=== PATIENT | female | born 1960 | race Caucasian/White ===

== ENCOUNTER → 2018-11-15 17:39 | Outpatient (CLI) | payer MEDICARE, MEDICAID, SELFPAY ==
--- NOTE | 2018-11-15 | DI.MRI.S_ITS ---
PROCEDURE: MR CERVICAL SPINE WO CON INDICATIONS: PAIN IN SHOULDER AND NECK TECHNIQUE: Noncontrast sagittal T1 spin echo and T2 fast spin echo, sagittal STIR, foraminal oblique sagittal T2 fast spin echo, and axial gradient echo or T2 fast spin echo through the cervical spine. COMPARISON: None. FINDINGS: Image quality: This examination is limited by involuntary motion artifact. Alignment and Curvature: There is reversal of the normal cervical lordosis, with the apex at the C5-C6 level. Bone Marrow: Marrow demonstrates normal overall signal. Spinal Cord: Visualized spinal cord has normal size and signal. No cerebellar tonsillar herniation. Paraspinous Soft Tissues: No paravertebral masses. Prevertebral soft tissues are normal in thickness. C2-C3: Mild loss of disc height is seen. Loss of disc signal is seen. Lbtm-[id number] facet hypertrophy is seen. There is mild to moderate bilateral neural foraminal narrowing seen. Minimal central canal narrowing is seen. C3-C4: The disc height is well-preserved. Loss of disc signal is seen at this level. Moderate disc osteophyte complex is seen, which is eccentric to the right. There is moderate facet hypertrophy seen, right worse than left. There is moderate to severe right-sided and moderate left-sided neural foraminal narrowing seen. At least moderate central canal narrowing is seen, with mass effect upon the ventral spinal cord. C4-C5: The disc height is well-preserved. Loss of disc signal is seen at this level. Moderate disc osteophyte complex is seen, which is eccentric to the left. There is mild to moderate right-sided and moderate left-sided facet hypertrophy seen. There is moderate right-sided and moderate to severe left-sided neural foraminal narrowing seen. Moderate central canal narrowing is seen, with mass effect upon the ventral spinal cord. C5-C6: Moderate loss of disc height is seen. Loss of disc signal is seen. Moderate to prominent disc osteophyte complex is seen. Uncovertebral joint hypertrophy is seen at this level. Mild facet joint hypertrophy is seen. Moderate to severe bilateral neural foraminal narrowing is seen. Moderate to severe central canal narrowing is seen, with mass effect upon the ventral spinal cord, as on series 5 image 24. C6-C7: Anterior fusion changes are seen at this level. There is associated susceptibility artifact. There is vertebral body fusion at this level. There is at least moderate bilateral neural foraminal narrowing seen. There is mild to moderate central canal narrowing. C7-T1: Mild to moderate loss of disc height and disc signal are seen. Moderate generalized disc osteophyte complex is seen. Moderate bilateral neural foraminal narrowing is seen. No significant central canal narrowing is seen. IMPRESSION: C6-C7 postoperative fusion changes anteriorly. Multiple levels of degenerative change are seen, which are worst at the C5-C6 level, where there is moderate to severe bilateral neural foraminal narrowing and moderate to severe central canal narrowing. Dictated by: Alex Vogt M.D. on 11/16/2018 at 8:19 Approved by: Alex Vogt M.D. on 11/16/2018 at 8:25
== END ==
PROVIDERS: Visit Provider Physical Medicine & Rehabilitation
DX: M25.512 Pain in left shoulder (principal); M54.2 Cervicalgia; M47.22 Other spondylosis with radiculopathy, cervical region; M48.02 Spinal stenosis, cervical region; Z98.1 Arthrodesis status
CPT/HCPCS: 72141

== ENCOUNTER → 2019-02-20 12:20 | Outpatient (CLI) | payer MEDICARE, MEDICAID, SELFPAY ==
[2019-02-20 13:19] LABS: Add Manual Diff / Slide Review NO; Basophils Absolute Auto 0 /uL (0-100); Basophils Percent Auto 0.5 % (0-2); Eosinophils Absolute Auto 300 /uL (0-450); Eosinophils Percent Auto 5.3 % (2-4); Hematocrit 40.2 % (36-46); Hemoglobin 13.4 g/dL (12.0-16.0); Lymphocytes Absolute Auto 1900 /uL (1100-4500); Lymphocytes Percent Auto 28.5 % (25-40); Mean Corpuscular HGB Conc 33.2 % (30-36); Mean Corpuscular Volume 96.2 fL (80-100); Monocytes Absolute Auto 500 /uL (0-900); Monocytes Percent Auto 7.9 % (3-14); Neutrophils Absolute Auto 3800 /uL (1500-7000); Neutrophils Percent Auto 57.8 % (50-75); Platelet Count 308 X10^3/uL (150-400); Red Blood Cell Count 4.18 X10^6/uL (4.0-5.2); Red Cell Distribution Width 13.7 % (11.6-14.8); White Blood Cell Count 6.5 X10^3/uL (4.5-11.0)
[2019-02-20 13:30] LABS: BUN Creatinine Ratio 28.3 (6-22); Blood Urea Nitrogen 17 mg/dL (7-17); Carbon Dioxide 27 mmol/L (22-32); Chloride 104 mmol/L (98-107); Estimated Glomerular Filt Rate > 60.0 mL/min (>60); Glucose 112 mg/dL (70-100); HEMOLYSIS < 15 (0-50); Potassium 4.7 mmol/L (3.4-5.1); Sodium 141 mmol/L (137-145)
== END ==
PROVIDERS: Visit Provider Physician Assistant
DX: M48.02 Spinal stenosis, cervical region (principal); M47.22 Other spondylosis with radiculopathy, cervical region; Z01.812 Encounter for preprocedural laboratory examination
CPT/HCPCS: 36415; 80048; 85025; 93005; 93010

== ENCOUNTER 2019-03-01 11:14 | Inpatient (IN) | payer MEDICARE, MEDICAID, SELFPAY ==
[2019-02-06 13:25] VITALS: BMI 32.8
[2019-03-01] VITALS (18 sets, daily range): BP systolic 126–178; BP diastolic 70–110; PULSE 79–100; RESP 9–18; TEMP 35.6–36.8; O2SAT 85–100; BMI 32.8
--- NOTE | 2019-03-01 | DI.RAD.S_ITS ---
PROCEDURE: XR CERVICAL SPINE 2V OR 3V INDICATIONS: C4-5, C5-6 ACDF W/ ANTERIOR INSTRU, C6-7 ANTERIOR INSTRUMENT TECHNIQUE: 2 view(s) of the cervical spine were acquired. COMPARISON: [facility] WANDA Black, XR CERVICAL SPINE WITH OBLIQUES, 11/01/2018, 13:49. FINDINGS: Intraoperative fluoroscopic images demonstrate anterior fusion from C4-C6. There is good anatomic alignment hardware appears to be intact.. IMPRESSION: Intraoperative anterior fusion from C4-C6. Recommend correlation with real-time operative report. Dictated by: Trisha Mckenzie M.D. on 03/01/2019 at 17:08 Approved by: Trisha Mckenzie M.D. on 03/01/2019 at 17:08
--- NOTE | 2019-03-01 12:04 | PM.PREOP ---
Pre-operative Note Interval Note History & Physical reviewed/Exam performed by Physician: Yes Changes to H&P: No
[2019-03-01] MEDS: LACTATED RINGERS 1,000 ML 42 ML IV ×2 (12:09→14:46)
[2019-03-01] MEDS: GABAPENTIN 300 MG CAPSULE PO (12:18)
--- NOTE | 2019-03-01 12:27 | SUR.PREOP ---
Anesthesia notified that pt. took own tylenol this a.m. @ 0830; held 975 mg dose.
[2019-03-01] MEDS: CLINDAMYCIN 900 MG/50 ML PIGGYBACK 50 MG IV ×2 (12:33→20:21)
--- NOTE | 2019-03-01 13:18 | SUR.OPER ---
Supine on padded OR bed, head on gel donut, towel roll between shoulders vertically, arms papoosed with gel pads and secured with towel clips on a draw sheet. Taped by surgeon from bilateral shoulders to foot of bed. Legs uncrossed, safety belt at thigh, tape over blanket over lower legs.
[2019-03-01] MEDS: BUPIVACAINE 0.25% W/ EPI 30 ML VIAL INJ (13:29)
[2019-03-01] MEDS: HYDROMORPHONE 2 MG INJ 0.5 MG IV (15:50)
[2019-03-01] MEDS: LORazepam 2 MG/ML INJ 0.25 MG IV (15:51)
[2019-03-01] MEDS: hydrOXYzine 50 MG/ML INJ 25 MG IM (15:54)
--- NOTE | 2019-03-01 15:54 | PM.OP.1 ---
Operative Date/Time/Diagnoses Date of procedure: 03/01/19 Time of procedure: 13:10 Pre-op diagnosis: 1. Hx of C6-7 anterior cervical discectomy and fusion 2. C4-5, C5-6 spinal stenosis 3. C4-5, C5-6 spondylosis with radiculopathy Post-op diagnosis: same Procedure & Clinicians Procedure: 1. C4-5, C5-6 anterior cervical diskectomy and fusion 2. C4-5, C5-6 anterior interbody cage placement 3. C4-5, C5-6 anterior instrumentation with plate and screw placement in C4, C5-C6 vertebrae 4. C6-7 anterior instrumentation removal 5. Utilization of microsurgical technique and operating microscope Same procedure as scheduled: Yes Indications: Patient has been having chronic neck pain and worsening cervical radiculopathy. Patient failed multiple conservative management with worsening pain weakness and numbness in her upper extremity. The patient had prior C6-7 anterior cervical diskectomy and fusion with approximately 6 months of good pain relief. Patient has been having difficulty performing activity of daily living. After discussing risks benefits of treatment options, patient elected proceed with surgery. Surgeon: Colton Friedman Rougher For Cement: Beverly Almanza Click Yes if Unassisted: No Anesthesia Type: General Operative Notes Closure Type: primary Specimen(s): none sent Prosthetic devices, grafts, tissues, transplants, or devices: Globus Extend plate, PEEK cages Applied: catheter Estimated Blood Loss (mL): 20 Blood products transfused: none Procedure in detail: Patient was seen in the preoperative area. Risks and benefits of the surgery was discussed with the patient. Operative consent was obtained and placed in the chart. Patient was then taken to the operative room. Prophylactic antibiotic was given less than 0.5 hr prior to skin incision. General anesthesia was administered. Patient was placed into a supine position on her radiolucent table. Bilateral shoulders were taped down to allow proper C-arm imaging. Anterior cervical area was prepped and draped in a sterile fashion. Time-out was performed at this time. Using lateral C-arm imaging, the level between C4 and C6 was identified and marked on patient's neck. A oblique incision from midline towards medial border of sternocleidomastoid muscle was made. The platysma muscle was incised in line with skin incision. Metzenbaum scissor was used to develop the plane between the medial border of sternocleidomastoid d and the strap muscles medially. The carotid sheath and its contents were identified and protected behind the hand-held retractor during the entire case. The plane between the carotid sheath and strap muscles was developed with Metzenbaum scissors. Dissection was made down to the level of the anterior cervical fascia. Longus colli muscle was incised on the anterior aspect of vertebral bodies bilaterally from C4-7. Spinal needle was placed into the C5-6 disc space and confirmed with lateral C-arm imaging. The C6-7 anterior plate was exposed by dissecting down the soft tissue as well as the anterior osteophyte. Hardware removal instrument was used to remove the locking mechanism on the plate at both C6 and C7 level. Screwdriver was used to remove the C6-7 screws. The screws was removed without any difficulty. After the screws were removed the plate was lifted off of the anterior aspects of the vertebral bodies without any difficulty. Using microsurgical technique and operative microscope, anterior cervical diskectomy was performed at C4-5 C5-6 level. This was done by removing the disc material, removing the anterior and posterior osteophytes posterior longitudinal ligaments along with performing bilateral foraminotomies at both levels. Patient was found to have severe central and foraminal stenosis at both levels. Patient's stenosis was fully decompressed after decompression was completed. After the diskectomy was completed, 2 anterior interbody cages were obtained. The cages were packed with globus via cell bone grafting material. One cage each along with the bone grafting material was then packed into the interbody spaces from C4-6 with one cage into each interbody level. After the cages were placed, the anterior cervical plate was stabilized to the C4-C6 vertebrae using 2 screws at each each level. There were large anterior osteophytes from C3 all the way down to the C6 which were excised using the Leksell rongeur. Total 6 screws were placed. After confirming placement of the hardware with AP and lateral C-arm imaging, the screws were locked into the plate using the locking mechanism and torque limiting screwdriver. After the hardware was placed and confirmed with AP and lateral C-arm imaging, the wound was irrigated with sterile normal saline. The platysma muscle and the subcutaneous tissue was closed with 2-0 Vicryl. The skin was closed with 4-0 Monocryl and Steri-Strips. Patient tolerated the procedure well. Patient was transferred recovery room in stable condition. There were no complications. Complications: none Condition: stable Disposition: PACU Plan for aftercare: Admit to inpatient hospital
--- NOTE | 2019-03-01 16:20 | SUR.PHASEI ---
Pt arrived restless. C/o 02/16 upper back/shoulder pain and feeling hot. Mildly diaphoretic. Ice pack applied. cool rag applied. Medicated.
--- NOTE | 2019-03-01 16:28 | SUR.PHASEI ---
pt mostly sleeping/snoring. Stated what pain? when asked about her pain level. Easily aroused.
--- NOTE | 2019-03-01 16:53 | SUR.PHASEI ---
report called to [facility]
--- NOTE | 2019-03-01 16:57 | SUR.PHASEI ---
Dr. Rose notified pt intermittently needing 1-2L o2 while sleeping and bp 160/92. OK to transfer patient with continuous pulse ox.
--- NOTE | 2019-03-01 17:26 | SUR.PHASEI ---
Pt transferred to the floor with o2 and pulse ox. Report to [facility]. VS stable. IV saline locked. Neck drsg cdi, collar in place. Belongings bag with patient.
[2019-03-01] MEDS: SODIUM CHLORIDE 0.9% 1,000 ML 100 ML IV (18:17)
[2019-03-01] MEDS: DOCUSATE 100 MG CAPSULE PO (20:21)
[2019-03-01] MEDS: OXYCODONE IR 5 MG TABLET 10 MG PO (20:21)
[2019-03-01] MEDS: SENNOSIDES 8.6 MG TABLET 17.2 MG PO (20:22)
[2019-03-02 00:27] VITALS: BP 146/76; PULSE 88; RESP 15; TEMP 36.6; O2SAT 96
[2019-03-02] MEDS: HYDROMORPHONE 0.5 MG INJ IV ×5 (00:32→23:56)
[2019-03-02] MEDS: OXYCODONE IR 5 MG TABLET 10 MG PO ×3 (04:06→15:31)
[2019-03-02] MEDS: CLINDAMYCIN 900 MG/50 ML PIGGYBACK 50 MG IV (04:06)
[2019-03-02] MEDS: ONDANSETRON 4 MG/2 ML INJ IV ×2 (04:24→15:41)
[2019-03-02 05:17] VITALS: BP 131/83; PULSE 85; RESP 16; TEMP 36.8; O2SAT 98
[2019-03-02 08:05] VITALS: BP 154/72; PULSE 85; RESP 20; TEMP 36.4; O2SAT 99
[2019-03-02] MEDS: DOCUSATE 100 MG CAPSULE PO ×2 (08:26→20:19)
[2019-03-02] MEDS: SODIUM CHLORIDE 0.9% FLUSH 10 ML IV ×2 (08:27→20:40)
--- NOTE | 2019-03-02 09:28 | PT.IIE ---
Current Diagnoses Other spondylosis with radiculopathy, cervical region (03/01/19) Spinal stenosis, cervical region (03/01/19) Arthrodesis status (03/01/19) Surgery Performed Operation Date: 03/01/19 13:15 Actual Procedures p C4-5,C5-6 ACDF w/anterior instru, C6-7 anterior instrumentation removal - Colton Friedman MD Surgical History (This Medical Record has been edited. Action required.) History of ankle surgery (Acute) History of section (Acute) History of ear surgery (Acute) Hx of bilateral breast reduction surgery (Acute) Hx of left breast biopsy (Acute) S/P cervical spinal fusion (Acute ~2001) Medical History (This Medical Record has been edited. Action required.) Arthritis (Acute) Dyspnea (Acute) Nerve pain (Acute) Physical Therapy Inpatient Evaluation/Re-Eval M1 PT/OT-IP Prior Functional Status Start: 03/02/19 12:14 Freq: NEEDED Status: Active Protocol: Document 03/02/19 09:28 AB (Rec: 03/02/19 12:35 AB [id number]) Medical Review Prior Functional Status Medical History Reviewed Yes Communication able to make needs known Mobility and Gait pt stated that she is independent with all mobilities and ambulation without AD but occasionally uses a SPC due to hip problem Social History Household Members none Living Arrangements Mobile home Number of Floors (Floors) One Floor Number of Stairs To Enter/Railing? 4 steps with L rail ascending Home Environment Standard Height Toilet Tub/Shower Home Equipment Straight Cane Additional Social History Comment pt stated that her son will be off for 2 days and will assist him; stated that her sister from [place] is in town and may assist her but pt does not know how long her sister will be in town M2 PT-IP Current Condition Start: 03/02/19 12:14 Freq: NEEDED Status: Active Protocol: Document 03/02/19 09:28 AB (Rec: 03/02/19 12:35 AB [id number]) Physical Therapy Current Condition Current Condition Evaluation Date 03/02/19 Treatment Diagnosis C4-5 ACDF; difficulty in walking Onset Date 03/01/19 Precautions Cervical Spine Precautions Soft Collar for Comfort No Heavy Lifting Log Roll M3 PT-IP Subjective Start: 03/02/19 12:14 Freq: NEEDED Status: Active Protocol: Document 03/02/19 09:28 AB (Rec: 03/02/19 12:35 AB [id number]) Subjective Physical Therapy Visit Type Type Initial Evaluation Visit Start Time 09:28 Visit Stop Time 10:00 Total Visit Minutes 32 Number of METEOROLOGY FACULTY MEMBER Visits 0 Physical Therapy Visit Comments Patient Comments pt agreeable to do PT but is c /o increase pain Therapy Pain Assessment Pain When Pain Assessed At Rest Pain Present Pain Present Pain Reported Location Neck Intensity 6 Scale Used Numeric (1 - 10) Pain Management Techniques Apply Cold Re-positioning Timing of Activity with Medications M4 PT-IP Mobility and Gait Start: 03/02/19 12:14 Freq: NEEDED Status: Active Protocol: Document 03/02/19 09:28 AB (Rec: 03/02/19 12:35 AB [id number]) PT-Bed Mobility Assessment Rolling Type of Rolling Log Rolling Level of Assist Standby Assistance Supine to Sit Supine to Sit Standby Assistance Sit to Supine Sit to Supine Standby Assistance Scooting Scooting to Edge of Bed Standby Assistance PT-Transfer Assessment Sit to and From Stand Sit to and from Stand Minimal Assistance 1 Person Assistance Equipment Transfer Assistive Device Gait Belt Straight Cane Front Wheeled Walker Transfers Transfer Destination Chair Toilet Transfer Technique pt ambulated to the toilet Transfer Ability Level of Assist Minimal Assistance Moderate Assistance 1 Person Assistance Use of Upper Extremities Comments Mobility Comments pt completed supine to sit log roll SBA with cues for techniques. pt was able to sit on EOB SBA. completed sit to stand min A and cues. pt requiring mod A for steadiness and safety with standing. pt ambulated to the toilet using SPC requiring mod A and presents with unsteady gait. pt was able to completed sit to stand from the toilet using grab bars min A and cues and ambulated out of the toilet to the chair using FWW min A and cues. attempted to stay up on chair and positioned pt but pt stated that its too much pain on her neck to hold her head upright and wants to go back to bed. completed stand pivot transfer to the bed min A using FWW. completed sit to supine SBA and cues. call light and table placed within reach. Gait Assessment Gait Gait Assistance Required: Minimum Assistance Moderate Assistance 1 Person Assist Distance (Feet) 10 Able to Maintain Weight Bearing Status Yes During Gait Assistive Devices Assistive Device Gait Belt Straight Cane Front Wheeled Walker Orthotic/Prosthetic Devices or Brace: Yes Gait Deviations General Gait Pattern Antalgic Decreased Stride Length Decreased Feet Clearance Step-to Gait Factors Limiting Gait Function Factors Limiting Gait Function Decreased Activity Tolerance Decreased Sensation Decreased Strength Limited Range of Motion Pain Poor Balance Poor Safety Awareness Comments Gait Comments pt ambulated ~ 10 ft using SPC mod A and cues and also ambulated using FWW ~ 10 ft min A and cues. PT-Balance Assessment Sitting Balance and Reactions Static Sitting Balance Ability Good Dynamic Sitting Balance Ability Good Standing Balance and Reactions Static Standing Balance Ability Fair Dynamic Standing Balance Ability Fair Device Used SPC/FWW M5 PT-IP Objective Assessments Start: 03/02/19 12:14 Freq: NEEDED Status: Active Protocol: Document 03/02/19 09:28 AB (Rec: 03/02/19 12:35 AB [id number]) Orientation Orientation/Cognition Level of Alertness Alert Orientation Name Age Birthday Month Date Year Day of Week Place Situation Language Function Ability No Deficits Noted Safety Awareness Decreased Safety Awareness Memory Description Short Term Impaired Gross Range of Motion Lower Extremity ROM Assessment Within Functional Limits Strength Lower Extremity Strength Assessment Bilaterally Impaired Hip 4-/5 Knee 4-/5 Coordination Assessment Gross Coordination Gross Coordination WNL Sensation Assessment Sensation Gross Sensation Right UE Impaired Sensation Description Numbness Tingling Comments Sensation Comments c/o R hand/ finger numbness, tingling Muscle Tone Muscle Tone WNL Yes M6 PT-IP Treatment Start: 03/02/19 12:14 Freq: NEEDED Status: Active Protocol: Document 03/02/19 09:28 AB (Rec: 03/02/19 12:35 AB [id number]) Physical Therapy Treatment Education Education Provided Precautions Weight Bearing Status Post-Op Packet Safety M7 PT-IP Assessment and Plan Start: 03/02/19 12:14 Freq: NEEDED Status: Active Protocol: Document 03/02/19 09:28 AB (Rec: 03/02/19 12:35 AB [id number]) PT Summary Assessment and Plan Potential Rehabilitation Potential Fair Status of Condition at Evaluation Evolving Summary Impairments Pain ROM Strength Balance Coordination Sensation Tone Cognition Bed Mobility Transfers Gait Activity Tolerance Assessment Summary pt unable to tolerate much activity this morning with c/o increase cervical pain. pt has limited assistance at home and pt's son can only stay with pt for 2 days to assist her. d/c plan depending on progress Goals Bed Mobility Goal Independent Transfer Goal Independent Cane Gait Goal Independent Cane Gait Distance 150 Other Goals up/down 4 step L rail ascending SBA Days to Meet Goals 5 Frequency of Treatment Frequency Of Treatment Twice a Day Treatment Plan Physical Therapy Treatment Plan Bed Mobility Training Transfer Training Gait Training Therapeutic Exercise Balance Retraining Post Op Education Discharge Planning Hot or Cold Pack Neuromuscular Re-ed Coordination Retraining Manual Therapy Other Recommendations and Next Treatment bed mobility, ambulation, soft Focus collar management Recommendations To Nursing Amount of Assist Needed 1 Person Assist Discharge Recommendations PT Discharge Recommendations Home with 24/7 Assist Home Health SNF Rehab Other Discharge Recommendations depending on progress: SNF vs home with 24/7 assist
--- NOTE | 2019-03-02 10:12 | PM.PN.1 ---
Subjective Date Patient Seen: 03/02/19 Time Patient Seen: 10:12 Interval history: Patient is POD# s/p ACDF with Dr. Friedman. Significant pain while trying to work with PT today, did make it to chair. Main complaint is muscle spasms in the shoulder blades. Does have some new numbness in right hand which she states is similar to what she had before her previous ACDF. No chest pain, shortness of breath. Some discomfort with swallowing but tolerating a diet. Exam Vital Signs (past 8 hours): - 03/02/19 05:17 03/02/19 08:05 Temperature 98.2 F 97.6 F Pulse Rate 85 85 Respiratory Rate 16 20 Blood Pressure 131/83 154/72 H Pulse Oximetry 98 99 Oxygen Delivery Method Room Air Oxygen Flow Rate 0 Narrative Exam Narrative: 58 year old female in moderate discomfort. Alert and oriented. Wearing soft collar. Dressing is CDI. SILT in B/L upper extremities. [employer] Supervisor strength is symmetric. Calves soft, compressible. Assessment & Plan Assessment & Plan narrative: Patient had good relief with IV Dilaudid so will start Dilaudid 2mg PO Q3hrs. She has Vistaril ordered for muscle spasm but has not taken it yet. Will start this today, potentially change to Flexeril if this is not helping. Likely discharge tomorrow or later today if better pain control. Quality VTE Deep Vein Thrombosis/Pulmonary Embolism Present on Admission: No
[2019-03-02] MEDS: hydrOXYzine pamoate 25 MG CAPSULE PO ×4 (10:21→23:57)
[2019-03-02] MEDS: HYDROMORPHONE 2 MG TABLET PO ×3 (10:21→20:19)
[2019-03-02] MEDS: ACETAMINOPHEN 325 MG TABLET 650 MG PO ×3 (10:23→23:57)
[2019-03-02 11:20] VITALS: BP 126/74; PULSE 87; RESP 18; TEMP 36.7; O2SAT 95
--- NOTE | 2019-03-02 11:52 | CM.DANOTE ---
DCP/Assessment: Reviewed chart. Patient is a 58yr old female admitted [facility] for ACDF with Dr. Friedman performed on 03-01-19. PCP is Dr. Yang. Primary payor is 1)Medicare 2)Medicaid. Met with patient and family at bedside explained CM/SW role. Patient with complaints of significant pain today. Patient plans to d/c home with family support. Per patient, she hopes to discharge tomorrow? Patient does have cane at home and uses at baseline. Patient believes that she may need FWW. Notified patient that the therapy team would let us know if walker needed prior to d/c. Patient's sister/Jane here visiting from [facility]. Patient reports that she resides with her son/Bora and has additional family support. Notified patient that CM team would continue to follow. P: Home when stable. ISS[facility] Gallo Discharge Planning/Care Management CM Discharge Assessment Start: 03/02/19 11:42 Freq: Status: Active Protocol: Document 03/02/19 11:42 KJS (Rec: 03/02/19 11:52 KJS [id number]) Discharge Planning Assessment Assigned Software Applications Specialist ISSAC Gallo Contact Information Vania Castellanos (Mother) [phone] Advance Directives? No: Declines further information History Provided By Patient Family Member Parents Medical Record Prior Living Arrangements Mobile home Household Members none Type of transporation used prior to Drives own vehicle admit Independent with ADL's Yes Is patient alert and oriented? Yes DME Already Rented / Owned Cane Comment Might need FWW for home use. Barriers to Discharge No Discharge Plan Home Transportation Arrangement Home with supportive family. Whiteboard Updated in Patient Room with Yes name and ext. 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 Required No Height 160.02 cm Weight 83.915 kg Body Mass Index (BMI) 32.8 Hearing Ability Normal Visual Assist Glasses Magnifying Glass Dentition Type Teeth, Natural Present Teeth, Missing Barriers to Learning None Other Aids No Hx Anesthesia Reactions No Hx Family Anesthesia Reaction No Hx Malignant Hyperthermia No Hx Blood Transfusions No Anesthesia Review Requested No alcohol intake current alcohol intake frequency holidays/special occasions only Smoking Status Former smoker Tobacco type cigarettes how long ago did patient quit smoking Quit 12 years ago Substance Use Type does not use Pain Present Pain Reported Musculoskeletal Symptoms Difficulty Walking Limited Range of Motion Muscle Cramps Muscle Spasms Muscle Weakness Neck Pain Numbness Radiating Pain into Limb Tingling History of Falling (Recent or History of Yes ) Patient is completely paralyzed or No completely immobile Prosthesis or Orthotic Device Cane Mental Status Oriented to own ability Is patient on oxygen? No Does patient have TURPIN/SOB Yes: TURPIN w/walking, cold weather, she feels r/t deconditioning Hx Sleep Apnea No Suspected Sleep Apnea Yes: Stop/Bang negative Currently Taking a Beta Noé No Can You Climb a Flight of Stairs Without Yes SOB Hx Chest Pain No Hx SOB Yes: TURPIN w/walking, cold weather, she feels r/t deconditioning Hx Syncope or Dizziness No Anti-Coagulant Therapy No Has a Gold Letterer No Cardiac Testing No Hx Pacemaker/ICD No Pacemaker Rep Required? No Cardiac Clearance Received Not Applicable Diet Type At Home Regular dysphagia Yes: Occasional in the mornings Urinary Catheter Present No Hx Urinary Self Catheterization No Diabetes No Patient No Lactating No Hx Drug Resistant Organism No Presence of External or Internal Medical Yes: Cervical hardware Devices Have you traveled outside the [facility] in the last 30 days? Marital Status Single Lives With none Prior Living Arrangements Mobile home Number of Floors (Floors) One Floor Support System Child/Children Does the Patient Have Assistance After Yes Surgery Patient Discharge Plan Description Return Home Comment Pt advised overnight length of stay per surgeon Feels Safe in Current Environment Yes Been Physically Hurt or Threatened By a No Person in Current Environment Do you have thoughts of harming yourself None or others? Are you currently considering suicide? No Do you have a plan to hurt yourself or No Plan others? Do You Have Any Spiritual Beliefs That No May Affect Your HC Choices? Do You Have Any Cultural Practices That No May Affect Your HC Choices? Comment Hugo Who Can We Speak to About Patient's Care Family, friends Identifying Code for Release of Patient Declines to issue Information Health Care Proxy/Next of Kin Bora (son) Health Care Proxy Emergency Contact Name Bora (son) Emergency Contact Advance Directives? No: Declines further information PAC Instructions Medications to take/avoid Nasal antibiotic No ETOH/petroleum product on skin DOS NPO Post-op transportation Pre-surgical wash Sturdy shoes/comfortable clothes Do not bring valuables and remove jewelry Stop Bang Assessment Do you snore loudly (louder than talking Yes or loud enough to be heard through closed doors) Do you often feel tired, fatigued or Yes sleepy during the daytime Has anyone ever observed you stop No breathing while sleeping? Do you have, or are you being treated No for, high blood pressure Is your BMI more than 35 kg/m2 No Age over 50 Yes Estimated neck circumference greater No than 40cm or 16in Gender male No Result Negative
--- NOTE | 2019-03-02 12:07 | SLP.IPNOTE ---
Swallow screen performed per s/p ACDF surgery. Pt is safely tolerating pureed foods and thin liquids. Pt and family report voice is baseline. Anticipate pt will be able to advance diet slowly as is typical after ACDF surgery. No skilled assessment or intervention warranted at this time.
--- NOTE | 2019-03-02 14:05 | PT.IPTN ---
Current Diagnoses Other spondylosis with radiculopathy, cervical region (03/01/19) Spinal stenosis, cervical region (03/01/19) Arthrodesis status (03/01/19) Surgery Performed Operation Date: 03/01/19 13:15 Actual Procedures p C4-5,C5-6 ACDF w/anterior instru, C6-7 anterior instrumentation removal - Colton Friedman MD Physical Therapy Treatment Note M2 PT-IP Current Condition Start: 03/02/19 12:14 Freq: NEEDED Status: Active Protocol: Document 03/02/19 09:28 AB (Rec: 03/02/19 12:35 AB [id number]) Physical Therapy Current Condition Current Condition Evaluation Date 03/02/19 Treatment Diagnosis C4-5 ACDF; difficulty in walking Onset Date 03/01/19 Precautions Cervical Spine Precautions Soft Collar for Comfort No Heavy Lifting Log Roll M3 PT-IP Subjective Start: 03/02/19 12:14 Freq: NEEDED Status: Active Protocol: Document 03/02/19 14:05 GGD (Rec: 03/02/19 15:40 GGD [id number]) Subjective Physical Therapy Visit Type Type Treatment Note Visit Start Time 13:50 Visit Stop Time 14:06 Total Visit Minutes 16 Number of CLINICAL DATA ASSOCIATE Visits 1 Physical Therapy Visit Comments Patient Comments Pt states she would like to go back to bed. Therapy Pain Assessment Pain When Pain Assessed At Rest Pain Present Pain Present Pain Reported M4 PT-IP Mobility and Gait Start: 03/02/19 12:14 Freq: NEEDED Status: Active Protocol: Document 03/02/19 14:05 GGD (Rec: 03/02/19 15:40 GGD [id number]) PT-Bed Mobility Assessment Sit to Supine Sit to Supine Standby Assistance Scooting Scooting to Edge of Bed Standby Assistance PT-Transfer Assessment Sit to and From Stand Sit to and from Stand Contact Guard Assistance 1 Person Assistance Use of Upper Extremities Equipment Transfer Assistive Device Gait Belt Front Wheeled Walker Transfers Transfer Destination Bed Transfer Ability Level of Assist Contact Guard Assistance 1 Person Assistance Use of Upper Extremities Gait Assessment Gait Gait Assistance Required: Contact Guard Assist 1 Person Assist Distance (Feet) 30 Able to Maintain Weight Bearing Status Yes During Gait Assistive Devices Assistive Device Straight Cane Front Wheeled Walker Gait Deviations General Gait Pattern Antalgic Decreased Stride Length Decreased Feet Clearance Step-to Gait Factors Limiting Gait Function Factors Limiting Gait Function Decreased Activity Tolerance Decreased Sensation Decreased Strength Limited Range of Motion Pain Poor Balance Poor Safety Awareness M5 PT-IP Objective Assessments Start: 03/02/19 12:14 Freq: NEEDED Status: Active Protocol: Document 03/02/19 09:28 AB (Rec: 03/02/19 12:35 AB [id number]) Orientation Orientation/Cognition Level of Alertness Alert Orientation Name Age Birthday Month Date Year Day of Week Place Situation Language Function Ability No Deficits Noted Safety Awareness Decreased Safety Awareness Memory Description Short Term Impaired Gross Range of Motion Lower Extremity ROM Assessment Within Functional Limits Strength Lower Extremity Strength Assessment Bilaterally Impaired Hip 4-/5 Knee 4-/5 Coordination Assessment Gross Coordination Gross Coordination WNL Sensation Assessment Sensation Gross Sensation Right UE Impaired Sensation Description Numbness Tingling Comments Sensation Comments c/o R hand/ finger numbness, tingling Muscle Tone Muscle Tone WNL Yes M6 PT-IP Treatment Start: 03/02/19 12:14 Freq: NEEDED Status: Active Protocol: Document 03/02/19 14:05 GGD (Rec: 03/02/19 15:40 GGD [id number]) Physical Therapy Treatment Education Education Provided Precautions M7 PT-IP Assessment and Plan Start: 03/02/19 12:14 Freq: NEEDED Status: Active Protocol: Document 03/02/19 14:05 GGD (Rec: 03/02/19 15:40 GGD [id number]) PT Summary Assessment and Plan Summary Assessment Summary Pt slowly progressing with mobility. She was SBA for bed mobility. She was able to progress gait distance. She had mild unsteadiness with gait, but safe with FWW. Frequency of Treatment Frequency Of Treatment Twice a Day Treatment Plan Physical Therapy Treatment Plan Bed Mobility Training Transfer Training Gait Training Therapeutic Exercise Balance Retraining Post Op Education Discharge Planning Hot or Cold Pack Neuromuscular Re-ed Coordination Retraining Manual Therapy Recommendations To Nursing Amount of Assist Needed 1 Person Assist Discharge Recommendations PT Discharge Recommendations Home with 30/01 Assist
[2019-03-02 15:59] VITALS: BP 166/80; PULSE 87; RESP 18; TEMP 36.7; O2SAT 100
--- NOTE | 2019-03-02 16:16 | OT.IP.TRT ---
Current Diagnoses Other spondylosis with radiculopathy, cervical region (03/01/19) Spinal stenosis, cervical region (03/01/19) Arthrodesis status (03/01/19) Surgery Performed Operation Date: 03/01/19 13:15 Actual Procedures p C4-5,C5-6 ACDF w/anterior instru, C6-7 anterior instrumentation removal - Colton Friedman MD Occupational Therapy Treatment Note M3 OT- IP Subjective and Pain Start: 03/02/19 16:16 Freq: Status: Active Protocol: Document 03/02/19 16:16 CGR (Rec: 03/02/19 16:16 CGR [email or web address]) OT- Subjective Occupational Therapy Visit Type Type Administrative Note Notes Attempted to see pt for OT services. Pt declined activity at this time. States that the pain is too much. Will hold and continue to follow.
[2019-03-02] MEDS: SENNOSIDES 8.6 MG TABLET 17.2 MG PO (20:19)
[2019-03-02 20:23] VITALS: BP 128/69; PULSE 85; RESP 20; TEMP 36.7; O2SAT 96
--- NOTE | 2019-03-02 22:41 | PC.NURSE ---
Pt has needed IVP dilaudid 0.5 mg x 2 this shift with Visteril 25 mg po and APAP 650 po to keep at or below 5/10. She is ambulating well and eating drinking and voiding. + BTs, LS clear, S1, S2.
[2019-03-03 00:20] VITALS: BP 146/75; PULSE 88; RESP 20; TEMP 37.1; O2SAT 97
[2019-03-03 03:31] VITALS: BP 143/80; PULSE 84; RESP 18; TEMP 36.9; O2SAT 97
[2019-03-03] MEDS: HYDROMORPHONE 0.5 MG INJ IV ×2 (03:59→06:52)
[2019-03-03] MEDS: hydrOXYzine pamoate 25 MG CAPSULE PO ×2 (04:00→08:21)
[2019-03-03] MEDS: ACETAMINOPHEN 325 MG TABLET 650 MG PO ×2 (06:47→11:35)
--- NOTE | 2019-03-03 06:55 | PC.NURSE ---
Pt reports pain severe 4-7/10 at neck, there's this [place] of pain around my head and neck Reports pain improved when at rest and increases sharply when moving. Pt reports pain is overwhelming and makes her cry on trip to bathroom. Pain meds given per order. Pt reports new migraines post-op. Provider aware. Right hand at baseline numbness and tingling.
[2019-03-03 07:55] VITALS: BP 137/81; PULSE 83; RESP 20; TEMP 36.5; O2SAT 95
[2019-03-03] MEDS: HYDROMORPHONE 2 MG TABLET PO ×2 (08:21→11:35)
[2019-03-03] MEDS: SODIUM CHLORIDE 0.9% FLUSH 10 ML IV (08:21)
[2019-03-03] MEDS: DOCUSATE 100 MG CAPSULE PO (08:21)
--- NOTE | 2019-03-03 11:15 | PM.PN.1 ---
Exam Vital Signs (past 8 hours): - 03/03/19 03:31 03/03/19 07:55 Temperature 98.5 F 97.7 F Pulse Rate 84 83 Respiratory Rate 18 20 Blood Pressure 143/80 H 137/81 Pulse Oximetry 97 95 Oxygen Delivery Method Room Air Oxygen Flow Rate 0 Assessment & Plan Assessment & Plan narrative: Patient is admitted after surgery. Patient has been stable and progressing with physical therapy. Patient is neurovascularly intact on exam. Patient has no signs or symptoms of DVT. Patient's dressing is clean dry and intact. Plan for discharge to home today Quality VTE Deep Vein Thrombosis/Pulmonary Embolism Present on Admission: No
[2019-03-03 11:55] VITALS: BP 115/76; PULSE 87; RESP 18; TEMP 36.7; O2SAT 96
--- NOTE | 2019-03-03 13:17 | PC.NURSE ---
Pt is dressed and ready for discharge. IV removed. Family member present to take Pt. home. Went over d/c instructions with Pt and family member, discussed d/c meds, time of last dose, reviewed lifting/fusion precautions, encouraged fluid intake to prevent constipation and dehydration, reviewed stroke education and s/s of infection and follow up appointment. Pt denies further questions and is ready to be taken out via w/c by [facility]ORDER[facility] to POV with family member and all belongings.
--- NOTE | 2019-03-03 13:57 | PT.IPTN ---
Current Diagnoses Other spondylosis with radiculopathy, cervical region (03/01/19) Spinal stenosis, cervical region (03/01/19) Arthrodesis status (03/01/19) Surgery Performed Operation Date: 03/01/19 13:15 Actual Procedures p C4-5,C5-6 ACDF w/anterior instru, C6-7 anterior instrumentation removal - Colton Friedman MD Physical Therapy Treatment Note M2 PT-IP Current Condition Start: 03/02/19 12:14 Freq: NEEDED Status: Discharge Protocol: Document 03/02/19 09:28 AB (Rec: 03/02/19 12:35 AB [id number]) Physical Therapy Current Condition Current Condition Evaluation Date 03/02/19 Treatment Diagnosis C4-5 ACDF; difficulty in walking Onset Date 03/01/19 Precautions Cervical Spine Precautions Soft Collar for Comfort No Heavy Lifting Log Roll M3 PT-IP Subjective Start: 03/02/19 12:14 Freq: NEEDED Status: Discharge Protocol: Document 03/03/19 13:45 AW (Rec: 03/03/19 13:57 AW [email or web address]) Subjective Physical Therapy Visit Type Type Treatment Note Visit Start Time 11:37 Visit Stop Time 11:55 Total Visit Minutes 18 Number of PAYROLL BENEFITS ADMINISTRATOR Visits 0 Physical Therapy Visit Comments Patient Comments Pt is sore but willing to work with PT Patient Goals Pt hoping to discharge this afternoon M4 PT-IP Mobility and Gait Start: 03/02/19 12:14 Freq: NEEDED Status: Discharge Protocol: Document 03/03/19 13:45 AW (Rec: 03/03/19 13:57 AW [email or web address]) PT-Bed Mobility Assessment Rolling Type of Rolling Log Rolling Level of Assist Standby Assistance Supine to Sit Supine to Sit Standby Assistance 1 Person Assistance Sit to Supine Sit to Supine Standby Assistance 1 Person Assistance Scooting Scooting to Edge of Bed Standby Assistance PT-Transfer Assessment Sit to and From Stand Sit to and from Stand Standby Assistance Equipment Transfer Assistive Device Gait Belt Front Wheeled Walker Orthotic/Prosthetic Devices or Brace: No Transfers Transfer Destination Bed Transfer Technique Stand Step Pivot Transfer Ability Level of Assist Standby Assistance 1 Person Assistance Comments Mobility Comments Pt required SBA for log rolling and sit to stand transfer. Pt movement is guarded and she complains of pain in her neck and shoulders , increasing with mobility. Gait Assessment Gait Gait Assistance Required: Standby Assistance 1 Person Assist Distance (Feet) 75 Assistive Devices Assistive Device Gait Belt Front Wheeled Walker Orthotic/Prosthetic Devices or Brace: No Gait Deviations General Gait Pattern Antalgic Decreased Stride Length Decreased Feet Clearance Factors Limiting Gait Function Factors Limiting Gait Function Decreased Activity Tolerance Decreased Sensation Decreased Strength Limited Range of Motion Pain Poor Balance Poor Safety Awareness Comments Gait Comments Pt ambulated ~75 feet using FWW, noting she feels more secure with a FWW than with SPC. Gait was antalgic, but required only SBA with FWW M5 PT-IP Objective Assessments Start: 03/02/19 12:14 Freq: NEEDED Status: Discharge Protocol: Document 03/02/19 09:28 AB (Rec: 03/02/19 12:35 AB [id number]) Orientation Orientation/Cognition Level of Alertness Alert Orientation Name Age Birthday Month Date Year Day of Week Place Situation Language Function Ability No Deficits Noted Safety Awareness Decreased Safety Awareness Memory Description Short Term Impaired Gross Range of Motion Lower Extremity ROM Assessment Within Functional Limits Strength Lower Extremity Strength Assessment Bilaterally Impaired Hip 4-/5 Knee 4-/5 Coordination Assessment Gross Coordination Gross Coordination WNL Sensation Assessment Sensation Gross Sensation Right UE Impaired Sensation Description Numbness Tingling Comments Sensation Comments c/o R hand/ finger numbness, tingling Muscle Tone Muscle Tone WNL Yes M6 PT-IP Treatment Start: 03/02/19 12:14 Freq: NEEDED Status: Discharge Protocol: Document 03/03/19 13:45 AW (Rec: 03/03/19 13:57 AW [email or web address]) Physical Therapy Treatment Education Education Provided Precautions Safety M7 PT-IP Assessment and Plan Start: 03/02/19 12:14 Freq: NEEDED Status: Discharge Protocol: Document 03/03/19 13:45 AW (Rec: 03/03/19 13:57 AW [email or web address]) PT Summary Assessment and Plan Potential Rehabilitation Potential Fair Status of Condition at Evaluation Stable Summary Impairments Pain ROM Strength Balance Coordination Sensation Tone Cognition Bed Mobility Transfers Gait Activity Tolerance Assessment Summary Pt continues to progress with mobility. She is able to teach back her precautions and able to don/doff her soft brace independently. No unsteadiness in gait noted with FWW. PT dispensed a FWW for home use. Goals Days to Meet Goals 3 Frequency of Treatment Frequency Of Treatment Twice a Day Recommendations To Nursing Amount of Assist Needed 1 Person Assist Discharge Recommendations PT Discharge Recommendations Home with 30/01 Assist Other Discharge Recommendations Pt to use FWW instead of SPC for increased stability Equipment Needed for Home Before FWW Discharge
--- NOTE | 2019-03-07 09:49 | PM.DS.1 ---
History of Present Illness History of Present Illness Date Patient Seen: 03/07/19 Time Patient Seen: 09:49 Chief complaint: [id number] Discharge Providers Provider Date of admission: 03/01/19 11:14 Discharge Date: 03/03/19 Consults: 03/01/19 17:14 Consult to Occupational Therapy Evaluate & Treat Comment: Physician Instructions: Evaluate and treat Consult to Physical Therapy Evaluate & Treat Comment: Physician Instructions: Evaluate and Treat 03/03/19 12:04 Consult to Physical Therapy Evaluate & Treat Comment: Physician Instructions: Evaluate and Treat Consult to Physical Therapy Evaluate & Treat Comment: Physician Instructions: FWW for home use Discharge provider: Maverick Watt PA-C Summary Hospital Course Discharge Diagnosis: C4-5, C5-6 ACDF with cage and anterior plate; C6-7 anterior instrumentation removed. Hospital Course: Patient brought to hospital on 03/01/2019 for above noted surgery by Dr. Friedman. She remained stable postoperatively. Did have increased neck pain on postop day 1 after working with PT by gradually improved. Patient is doing well on postop day 2 and was discharged home. Status at Discharge Cognitive/behavioral status at discharge: oriented Overall status at discharge: patient is progressing back to baseline Time Spent with Patient Time spent: Less than 30 minutes Exam Vital Signs (past 8 hours): Oxygen Delivery Method Room Air Oxygen Flow Rate 0 Discharge Plan Discharge Plan Patient Disposition: Home Discharge comment: Discharge home after cleared by PT. Keep soft cervical collar in place for the next few days. Avoid excessive head movement. No lifting or carrying more than 5-10 lb. Discharge Med Rec/Prescriptions Prescriptions: New hydromorphone 2 mg Tablet 2 mg PO Q4-6H PRN (Reason: Pain, Moderate (4-6)) Qty: 40 RF: 0 hydroxyzine pamoate 25 mg Capsule 25 mg PO Q4HR PRN (Reason: Nausea And Vomiting) Qty: 40 RF: 0 Continued methocarbamol 500 mg Tablet 500 mg PO QID PRN (Reason: Muscle Spasm) RF: 0 acetaminophen [Tylenol Extra Strength] 500 mg Tablet 2 - 3 tab PO TID RF: 0 Discontinued ibuprofen 200 mg Capsule 4 tab PO Q4H PRN (Reason: Pain) RF: 0 Provider Discharge Instructions Diet: Diet as Tolerated and Regular Activity: Use soft collar as needed Limit neck bending and twisting in the collar Skin/Wound/Dressing Care Report to your healthcare provider any signs of infection, such as:: chills, fever, night sweats, increased pain, unusual drainage and unusual redness Dressing: Keep dressing clean and dry for 2 weeks May shower with dressing covered Visit Report/Discharge Packet Instructions: DI for Anterior Cervical Discectomy and Fusion Visit Report Forms: Stroke Signs & Symptoms Discharges patient from system. Discharge Date/Time: 03/03/19 13:40 Quality VTE Deep Vein Thrombosis/Pulmonary Embolism Present on Admission: No
== END 2019-03-03 13:40 | disposition home or self-care (01) | DRG 473 ==
PROVIDERS: Admitting Provider Orthopaedic Surgery Orthopaedic Surgery of the Spine; Visit Provider Orthopaedic Surgery Orthopaedic Surgery of the Spine
PROC: 0RG20A0 Fusion of 2 or more Cervical Vertebral Joints with Interbody Fusion Device, Anterior Approach, Anterior Column, Open Approach (ICD-10-PCS; principal; 2019-03-01 13:15)
DX: M47.22 Other spondylosis with radiculopathy, cervical region (principal); M62.838 Other muscle spasm; Z98.1 Arthrodesis status; Z87.891 Personal history of nicotine dependence
CPT/HCPCS: 72040; 76000; 94762; 97116; 97162; 97530; C1776; J1100; J1170; J2060; J2250; J2405; J2704; J3010; J3410

== ENCOUNTER → 2022-07-18 11:24 | Outpatient (CLI) | payer MEDICARE, MEDICAID, SELFPAY ==
[2019-03-01 17:16] VITALS: BMI 32.8
--- NOTE | 2022-07-18 | DI.MRI.S_ITS ---
PROCEDURE: MR CERVICAL SPINE WO CON INDICATIONS: Cervicalgia TECHNIQUE: Noncontrast sagittal T1 spin echo and T2 fast spin echo, sagittal STIR, foraminal oblique sagittal T2 fast spin echo, and axial gradient echo or T2 fast spin echo through the cervical spine. COMPARISON: [facility] [place], CR, XR CERVICAL SPINE 2 OR 3 VIEWS, 06/19/2019, 13:34. FINDINGS: Postsurgical changes of C4-C6 ACDF. Anterior plate and screw construct with interbody devices has a normal expected appearance. Degenerative straightening of the usual cervical lordosis similar to comparison radiographs and 11/15/2018 MRI. No listhesis. Vertebral body heights maintained. No significant marrow signal abnormality. Normal morphology and signal intensity of the cervical cord. There is no syrinx. Regional prevertebral and paraspinous soft tissues are within normal limits. C2-C3: Posterior disc-osteophyte complex flattens the ventral thecal sac. No mass effect upon the cord. No neural foraminal narrowing. C3-C4: Posterior disc osteophyte complex flattens and indents the ventral cord. Facet and uncovertebral hypertrophy combine to produce moderate bilateral neural foraminal narrowing. C4-C5: Posterior disc osteophyte complex flattens and indents the ventral cord. Facet and uncovertebral hypertrophy combine to produce moderate bilateral neural foraminal narrowing. C5-C6: Posterior disc-osteophyte complex flattens the ventral cord slightly. Facet and uncovertebral hypertrophy combine to produce moderate bilateral neural foraminal narrowing. C6-C7: Posterior disc osteophyte complex flattens the ventral thecal sac without mass effect upon the cord. Facet and uncovertebral hypertrophy combine to produce mild bilateral neural foraminal narrowing. C7-T1: No spinal canal stenosis. Facet and uncovertebral hypertrophy combine to produce moderate left and mild right neural foraminal narrowing. IMPRESSION: Multilevel multifactorial degenerative changes, progressed slightly at each level when compared with 11/15/2018 exam. Moderate spinal canal stenosis from C3-C4 through C5-C6 with moderate neural foraminal narrowing bilaterally also at these levels. Dictated by: Vasu Warren M.D. on 07/18/2022 at 20:38 Approved by: Vasu Warren M.D. on 07/18/2022 at 20:43
== END ==
PROVIDERS: PCP Nurse Practitioner; Referring Provider Neurological Surgery; Visit Provider Neurological Surgery
DX: M47.812 Spondylosis without myelopathy or radiculopathy, cervical region (principal); M48.02 Spinal stenosis, cervical region; M54.2 Cervicalgia; Z98.1 Arthrodesis status
CPT/HCPCS: 72141